=== PATIENT | female | born 1990 | race American Indian/Alaskan Native ===

== ENCOUNTER 2018-04-04 15:37 | Emergency (ER) | payer SELFPAY ==
--- NOTE | 2018-04-04 19:08 | Emergency Department Report ---
- General Chief complaint: Skin Rash Stated complaint: ALLERGIC REACTION Time Seen by Provider: 04/04/18 18:42 Source: patient Mode of arrival: Ambulatory Limitations: No Limitations - History of Present Illness Initial comments: There is a 27-year-old female who presents for rash to groin after using there is a speech and red raised wheeping , no fever no chills no abdominal pain no nausea vomiting MD complaint: rash Onset/Timin -: days(s) Tetanus Up to Date: yes Location: genitals Severity: moderate Severity scale (0 -10): 3 Quality: burning, constant, other (itching ) Consistency: constant Improves with: none Worsens with: other (itch scratch cycle ) Context: other (renee to groin ) Treatments Prior to Arrival: none - Related Data Previous Rx's Medication Instructions Recorded Last Taken Type Fluconazole [Diflucan] 150 mg PO ONCE #1 tablet 04/04/18 Unknown Rx Mupirocin [Bactroban 2% OINT] 1 applic TP TID #1 tube 04/04/18 Unknown Rx metroNIDAZOLE [Flagyl] 500 mg PO BID #20 tab 04/04/18 Unknown Rx Allergies Allergy/AdvReac Type Severity Reaction Status Date / Time ketorolac [From Toradol] AdvReac Unknown Verified 04/04/18 15:54 Abscess Boil HPI - HPI Chief Complaint: Skin Rash Stated Complaint: ALLERGIC REACTION Time Seen by Provider: 04/04/18 18:42 Home Medications: Previous Rx's Medication Instructions Recorded Last Taken Type Fluconazole [Diflucan] 150 mg PO ONCE #1 tablet 04/04/18 Unknown Rx Mupirocin [Bactroban 2% OINT] 1 applic TP TID #1 tube 04/04/18 Unknown Rx metroNIDAZOLE [Flagyl] 500 mg PO BID #20 tab 04/04/18 Unknown Rx Allergies/Adverse Reactions: Allergies Allergy/AdvReac Type Severity Reaction Status Date / Time ketorolac [From Toradol] AdvReac Unknown Verified 04/04/18 15:54 ED Review of Systems ROS: Stated complaint: ALLERGIC REACTION Other details as noted in HPI Constitutional: denies: chills, fever Eyes: denies: eye pain, eye discharge, vision change ENT: denies: ear pain, throat pain Respiratory: denies: cough, shortness of breath, wheezing Cardiovascular: denies: chest pain, palpitations Endocrine: no symptoms reported Gastrointestinal: denies: abdominal pain, nausea, diarrhea Genitourinary: other (rash ) Musculoskeletal: denies: back pain, joint swelling, arthralgia Skin: rash. denies: lesions Neurological: denies: headache, weakness, paresthesias Psychiatric: denies: anxiety, depression Hematological/Lymphatic: denies: easy bleeding, easy bruising ED Past Medical Hx - Past Medical History Previous Medical History?: No - Surgical History Past Surgical History?: No - Social History Smoking Status: Never Smoker Substance Use Type: None - Medications Home Medications: Home Medications Medication Instructions Recorded Confirmed Last Taken Type Fluconazole [Diflucan] 150 mg PO ONCE #1 tablet 04/04/18 Unknown Rx Mupirocin [Bactroban 2% OINT] 1 applic TP TID #1 tube 04/04/18 Unknown Rx metroNIDAZOLE [Flagyl] 500 mg PO BID #20 tab 04/04/18 Unknown Rx ED Physical Exam - General Limitations: No Limitations General appearance: alert, in no apparent distress - Head Head exam: Present: atraumatic, normocephalic - Eye Eye exam: Present: normal appearance - ENT ENT exam: Present: mucous membranes moist - Neck Neck exam: Present: normal inspection - Respiratory Respiratory exam: Present: normal lung sounds bilaterally. Absent: respiratory distress - Cardiovascular Cardiovascular Exam: Present: regular rate, normal rhythm. Absent: systolic murmur, diastolic murmur, rubs, gallop - GI/Abdominal GI/Abdominal exam: Present: soft, normal bowel sounds - Extremities Exam Extremities exam: Present: normal inspection - Back Exam Back exam: Present: normal inspection - Neurological Exam Neurological exam: Present: alert, oriented X3 - Psychiatric Psychiatric exam: Present: normal affect, normal mood - Skin Skin exam: Present: rash (groin mild erythem rais smooth draing serious, no fever ) ED Course Vital Signs 04/04/18 15:51 Temperature 98.6 F Pulse Rate 91 H Blood Pressure 175/103 O2 Sat by Pulse 100 Oximetry ED Medical Decision Making - Medical Decision Making This is contact dermatitis with erythema plan mupirocin ointment patient now states vaginal discharge yeast exam consistent with same with treatment Diflucan Benadryl . prn itching for DC'd home in stable condition at this time Critical care attestation.: If time is entered above; I have spent that time in minutes in the direct care of this critically ill patient, excluding procedure time. ED Disposition Clinical Impression: Contact dermatitis Qualifiers: Contact dermatitis type: allergic Contact dermatitis trigger: cosmetics Qualified Code(s): L23.2 - Allergic contact dermatitis due to cosmetics Cellulitis Qualifiers: Site of cellulitis: other site Qualified Code(s): L03.818 - Cellulitis of other sites Disposition: DC- TO HOME OR SELFCARE Is pt being admited?: No Does the pt Need Aspirin: No Condition: Good Instructions: Cellulitis (ED), Contact Dermatitis (ED), Vaginitis (ED) Prescriptions: Fluconazole [Diflucan] 150 mg PO ONCE #1 tablet metroNIDAZOLE [Flagyl] 500 mg PO BID #20 tab Mupirocin [Bactroban 2% OINT] 1 applic TP TID #1 tube Referrals: PRIMARY CARE,MD [Primary Care Provider] - 3-5 Days Forms: Work/School Release Form(ED) Time of Disposition: 19:16
[2018-04-04 19:39] VITALS: BP 140/98
== END 2018-04-04 19:39 | disposition home or self-care (01) ==
LOC: ED 15:37
DX: L25.9 Unspecified contact dermatitis, unspecified cause (principal); L03.314 Cellulitis of groin; Z88.6 Allergy status to analgesic agent
CPT/HCPCS: 99281